=== PATIENT | male | born 1990 | race Caucasian/White ===

== ENCOUNTER 2021-02-25 10:57 | Emergency (ER) | payer OTHER, SELFPAY ==
[2021-02-25 11:05] VITALS: BP 154/91; PULSE 95; RESP 14; TEMP 36.8; O2SAT 99
[2021-02-25 11:48] LABS: Basophils Percent Auto 0.4 % (0.2-1.2); Eosinophils Absolute Auto 0.1 K/mm3 (0-0.3); Eosinophils Percent Auto 0.8 % (0-4.4); Hematocrit 50.7 % (42.0-52.0); Hemoglobin 17.6 g/dL (14.0-18.0); Immature Granulocyte Absolute 0.03 K/mm3 (0.00-0.031); Immature Granulocyte Percent A 0.3 % (0-0.5); Lymphocytes Percent Auto 44.6 % (18.3-44.2); Mean Corpuscular HGB Conc 34.7 g/dl (32-36); Mean Corpuscular Volume 86.4 fl (80-100); Mean Platelet Volume 10.2 fl (7.4-10.4); Monocytes Absolute Auto 0.5 K/mm3 (0.1-0.6); Monocytes Percent Auto 5.3 % (2.6-8.5); Neutrophils Absolute Auto 4.9 K/mm3 (1.3-6.7); Neutrophils Percent Auto 48.6 % (45.5-73.1); Platelet Count Result 315 k/mm3 (150-375); Red Blood Count 5.87 M/mm3 (4.6-6.20); White Blood Count 10.1 K/mm3 (4.5-10.0)
[2021-02-25 11:53] LABS: Add Urine Microscopic? YES; Appearance Urine Clear (Clear); Bilirubin Urine Negative (Negative); Blood Urine Negative (Negative); Color Urine Straw (Yellow); Glucose Urine UA Negative (Negative); Ketones Urine Negative (Negative); Leukocyte Esterase Ur Negative LEU/UL (Negative); Mucus Urine Rare /lpf; Nitrate Urine Negative (Negative); Protein Urine 1+ mg/dL (Negative); Specific Grav Ur 1.006 (1.001-1.035); Urobilinogen Urine Negative mg/dL (<2.0); WBC Urine 0-3 /hpf
[2021-02-25 12:07] LABS: Amphetamine Screen Urine Negative (Negative); Barbiturate Screen Urine Negative (Negative); Benzodiazepines Screen Urine Negative (Negative); Cannabinoid Screen Urine Negative (Negative); Cocaine Screen Urine Negative (Negative); Methadone Screen Urine Negative (Negative); Opiate Screen Urine Negative (Negative); Phencyclidine Screen Urine Negative (Negative)
[2021-02-25 12:17] LABS: Alanine Aminotransferase 27 U/L (4-50); Albumin Level 4.8 g/dL (3.5-5.1); Alkaline Phosphatase 80 U/L (38-126); Anion Gap 11 mmol/L (8-16); Aspartate Amino Transferase 42 U/L (17-59); Bilirubin,Total 0.8 mg/dL (0.2-1.3); Blood Urea Nitrogen 6 mg/dL (9-20); Calcium 8.7 mg/dL (8.4-10.2); Carbon Dioxide 27 mmol/L (22-30); Chloride 111 mmol/L (98-107); Estimated CRCL calculation 110 ml/min; Estimated Glomerular Filt Rate > 60; Glucose 115 mg/dL (75-110); Potassium 4.1 mmol/L (3.4-5.0); Sodium 149 mmol/L (137-145)
[2021-02-25 12:21] LABS: Ethanol 352 mg/dL (<10)
[2021-02-25] MEDS: NICOTINE (*PBKC) 14 MG PATCH 1 PATCH TRANSDERM (12:25)
[2021-02-25 12:47] LABS: Thyroid Stimulating Hormone 0.489 uIU/mL (0.465-4.680)
--- NOTE | 2021-02-25 13:00 | PC.NURSE ---
Pt. ready to leave. Stating You cannot keep me here. I am not suicidal only my sister said that Pt. informed that they need to stay and be evaluated once they sober up. Pt. was redirected and has calmed down. Pt. mother also called and stated that Pt. called her and his sister today about putting a gun to his last night but not pulling the trigger because patient didn't have the guts to . Pt. denies all accusations.
--- NOTE | 2021-02-25 13:04 | ED.PSYCH ---
HPI - Psych General Chief Complaint: Psychiatric Symptoms <Maddison Garcia MD - Last Filed: 02/25/21 19:24> Stated Complaint: si <Maddison Garcia MD - Last Filed: 02/25/21 19:24> Time Seen by Provider: 02/25/21 11:15 <Maddison Garcia MD - Last Filed: 02/25/21 19:24> Source: patient <Maddison Garcia MD - Last Filed: 02/25/21 19:24> Mode of arrival: EMS <Maddison Garcia MD - Last Filed: 02/25/21 19:24> Limitations: no limitations <Maddison Garcia MD - Last Filed: 02/25/21 19:24> History of Present Illness HPI Narrative: This is a 30 year old male who presents for evaluation of alcohol intoxication and suicidal statements. Patient states police showed up to his house. Patient has been drinking alcohol due to recent of a friends. EMS reports patient's sister reported that patient made statements about killing himselt. It has also been reported that patient placed a gun to his hand. Police removed the gun from the patient's house. Patient denies suicidal or homicidal ideations. He denies previous suicide attempt. Denies previous psych history. He denies any other complaints. <Maddison Garcia MD - Last Filed: 02/25/21 19:24> Related Data Allergies/Adverse Reactions: Allergies Allergy/AdvReac Type Severity Reaction Status Date / Time No Known Allergies Allergy Verified 11/09/18 17:19 <Maddison Garcia MD - Last Filed: 02/25/21 19:24> Review of Systems Review of Systems: All systems reviewed & are unremarkable except as noted in HPI and below <Maddison Garcia MD - Last Filed: 02/25/21 19:24> PMFSH Past Medical History Medical History: Medical History (Updated 02/26/21 @ 02:49 by Tobi Duque DO) Alcohol intoxication <Maddison Garcia MD - Last Filed: 02/25/21 19:24> Social History Social History: Social History (Updated 02/25/21 @ 13:10 by Maddison Garcia MD) Smoking packs per day: 1 Smoking cigarettes per day: 20.0 Smoking status: Current every day smoker Substance use type: does not use <Maddison Garcia MD - Last Filed: 02/25/21 19:24> Exam Const: General: no acute distress and alert <Maddison Garcia MD - Last Filed: 02/25/21 19:24> Orientation/consciousness: patient oriented x3 <Maddison Garcia MD - Last Filed: 02/25/21 19:24> Eyes: Pupils: Equal, round and reactive pupils present <Maddison Garcia MD - Last Filed: 02/25/21 19:24> EOM: EOMs intact bilaterally <Maddison Garcia MD - Last Filed: 02/25/21 19:24> Resp: Effort & Inspection: normal respiratory effort and no retractions <Maddison Garcia MD - Last Filed: 02/25/21 19:24> Auscultation: clear to auscultation bilaterally <Maddison Garcia MD - Last Filed: 02/25/21 19:24> Cardio: Rate: regular rate <Maddison Garcia MD - Last Filed: 02/25/21 19:24> Rhythm: regular rhythm <Maddison Garcia MD - Last Filed: 02/25/21 19:24> Heart sounds: no murmurs <Maddison Garcia MD - Last Filed: 02/25/21 19:24> GI: GI Palp: Yes Soft to palpation, No Tenderness to palpation present (GI) and No Guarding due to palpation present (GI) <Maddison Garcia MD - Last Filed: 02/25/21 19:24> Auscultation: normal bowel sounds <Maddison Garcia MD - Last Filed: 02/25/21 19:24> Skin: General skin exam: normal color <Maddison Garcia MD - Last Filed: 02/25/21 19:24> Rashes: no rashes <Maddison Garcia MD - Last Filed: 02/25/21 19:24> Neuro: General: patient oriented x3, moves all extremities and CN's II-XI intact bilaterally <Maddison Garcia MD - Last Filed: 02/25/21 19:24> Gait exam (Neuro): Normal gait present <Maddison Garcia MD - Last Filed: 02/25/21 19:24> Psych: Mental Status: mental status grossly normal <Maddison Garcia MD - Last Filed: 02/25/21 19:24> Affect: normal affect <Maddison Garcia MD - Last Filed: 02/25/21 19:24> Course Course Emergency Course: Care turned over to myself at shift change. P
--- NOTE | 2021-02-25 13:33 | PC.NURSE ---
Unable to perform [facility] assessment due to patient being intoxicated. Will reevaluate once patient is sober.
--- NOTE | 2021-02-25 14:19 | PC.NURSE ---
Pt. becoming angry about having to wait to be sober before being evaluated by crisis. Pt. advised to remain in their room. Pt. out in the [place] swearing loudly saying I don't give a fuck about someone see me This is bullshit You all are testing my patience . Pt. explained to refrain from swearing and redirected about their frustration. Pt. is still agitated but is remaining in their room at this time.
[2021-02-25 16:12] VITALS: BP 136/76; PULSE 106; RESP 14; O2SAT 98
--- NOTE | 2021-02-25 16:44 | PC.NURSE ---
Pt. being apologetic for being unreasonable earlier today. Pt. still states he will be leaving after 12 hours of being here. Pt. explained that someone will talk to them after they are sober for evaluation of their suicidal statement.
[2021-02-25] MEDS: CALCIUM CARBONATE (TUMS) 500 MG (200 MG ELEMENTAL) PO (20:23)
[2021-02-25 20:24] VITALS: BP 125/87; PULSE 100; RESP 20; O2SAT 100
[2021-02-25 23:41] LABS: Ethanol 102 mg/dL (<10)
[2021-02-26 00:06] LABS: SARS-CoV-2 RNA PCR Negative
[2021-02-26 00:11] VITALS: BP 126/84; PULSE 102; RESP 20; O2SAT 100
--- NOTE | 2021-02-26 00:46 | PC.NURSE ---
fax to [facility]
[2021-02-26 01:19] LABS: Ethanol 70 mg/dL (<10)
--- NOTE | 2021-02-26 01:36 | PC.NURSE ---
crisis called spoke to
[2021-02-26 03:00] VITALS: BP 128/85; PULSE 92; RESP 20; O2SAT 97
== END 2021-02-26 03:02 | disposition home or self-care (01) ==
PROVIDERS: General Practice; Emergency Provider Emergency Medicine; PCP Family Medicine
DX: F43.0 Acute stress reaction (principal); F10.129 Alcohol abuse with intoxication, unspecified; Y90.8 Blood alcohol level of 240 mg/100 ml or more; Z20.822 Contact with and (suspected) exposure to COVID-19
CPT/HCPCS: 36415; 80053; 80307; 81001; 84443; 85025; 99284; A9270; C9803; U0003; U0005

== ENCOUNTER 2023-08-25 12:12 | Emergency (ER) | payer OTHER, SELFPAY ==
[2023-08-25 12:21] VITALS: BP 123/70; PULSE 77; RESP 18; TEMP 36.1; O2SAT 100
--- NOTE | 2023-08-25 12:22 | ED.DENTAL ---
HPI - Dental/Oral General Chief complaint: Dental/Oral Stated complaint: tooth infection Time Seen by Provider: 08/25/23 12:16 Source: patient and family Mode of arrival: ambulatory Limitations: no limitations History of Present Illness HPI Narrative: 33 years old white male came to the emergency room with left lower dental pain that started few days ago. He denies any fever, chills, nausea, vomiting, difficulty swallowing or breathing or headache. Location: Tooth # (19) Teeth map: 1. Dental decay Related Data Allergies Allergy/AdvReac Type Severity Reaction Status Date / Time No Known Allergies Allergy Verified 08/25/23 12:15 Review of Systems Review of Systems: All systems reviewed & are unremarkable except as noted in HPI and below PMFSH Past Medical History Medical History Alcohol intoxication Social History Social History Smoking packs per day: 1 Smoking cigarettes per day: 20.0 Smoking status: Current every day smoker Substance use type: does not use Exam Narrative: General appearance: Well-developed, well-nourished Skin: Normal color Head: Normocephalic, nontraumatic Eyes: Clear conjunctiva ENT: Oropharynx normal, ears normal, nose normal, left lower tooth decay #19 Neck: Supple, nontender Neurologic: Alert and oriented ?3, [employer] is normal as tested, no gross motor deficit Course Vital Signs Vital signs: Vital Signs Temperature 36.1 C L 08/25/23 12:21 Pulse Rate 77 08/25/23 12:21 Respiratory Rate 18 08/25/23 12:21 Blood Pressure 123/70 08/25/23 12:21 Pulse Oximetry 100 08/25/23 12:21 Temperature 36.1 C L 08/25/23 12:21 Pulse Rate 77 08/25/23 12:21 Respiratory Rate 18 08/25/23 12:21 Blood Pressure 123/70 08/25/23 12:21 Pulse Oximetry 100 08/25/23 12:21 Critical Care Time Critical Care Time Critical Care Time: No Discharge Plan Discharge Clinical Impression: Dental caries Patient Disposition: Home, Self-Care Condition: Stable Instructions: Antibiotic Form, Toothache (ED) Additional Instructions: Return if symptoms are worsening , call your dentist for appointment, take Tylenol as as needed for aches and pain, continue home medications., Take ibuprofen 800 mg every 8 hours as needed Prescriptions: New penicillin V potassium 500 mg tablet 500 mg PO Q6H Qty: 40 0RF Follow-up/Referrals: Pedro Alarcon MD [Physician] - Stand Alone Forms: Work/School Release IP
== END 2023-08-25 12:40 | disposition home or self-care (01) ==
LOC: ANHED 12:28
PROVIDERS: Emergency Provider Emergency Medicine
DX: K02.9 Dental caries, unspecified (principal); F17.210 Nicotine dependence, cigarettes, uncomplicated
CPT/HCPCS: 99283